=== PATIENT | male | born 2000 | race Caucasian/White ===

== ENCOUNTER 2023-01-26 12:03 | Emergency (ER) | payer MEDICAID ==
[~2023-01-26] VITALS: Ht 167.6 cm; Wt 77.0 kg
[2023-01-26 12:07] VITALS: BP 146/71
== END 2023-01-26 13:16 | disposition left against medical advice (07) ==
LOC: ER 12:42
DX: F10.129 Alcohol abuse with intoxication, unspecified (principal); Y90.0 Blood alcohol level of less than 20 mg/100 ml
CPT/HCPCS: 99283